=== PATIENT | female | born 1975 | race Two or more races ===

== ENCOUNTER 2019-04-11 14:20 | Emergency (ER) | payer OTHER ==
[~2019-04-11] VITALS: Ht 172.7 cm; Wt 64.5 kg
[2019-04-11] MEDS ORDERED: IV NORMAL SALINE 1,000ML 1,000 ML IV ONE (14:30)
[2019-04-11] MEDS ORDERED: KETOROLAC 15 MG/ML VIAL. IVP ONE (14:45)
[2019-04-11] MEDS ORDERED: FAMOTIDINE 20 MG/2 ML VIAL IVP ONE (14:45)
[2019-04-11] MEDS ORDERED: ONDANSETRON PF 4 MG/2 ML VIAL. IVP ONE (14:45)
[2019-04-11 14:58] LABS: BASO # 0.1 x10^3/uL (0.0-0.2); BASO % 0 % (0-3); EOS # 0.1 x10^3/uL (0.0-0.7); EOS % 0 % (0-3); HEMATOCRIT 40.5 % (36.0-47.0); HEMOGLOBIN 13.9 g/dL (12.0-15.5); LYMPH # 1.5 x10^3/uL (1.0-4.8); LYMPH % 8 % (24-48); MEAN CORPUSCULAR HEMOGLOBIN 31 pg (25-35); MEAN CORPUSCULAR HGB CONC 34 g/dL (31-37); MEAN CORPUSCULAR VOLUME 89 fL (79-100); MONO # 1.2 x10^3/uL (0.0-1.1); MONO % 6 % (0-9); NEUT # 17.1 x10^3uL (1.8-7.7); NEUT % 86 % (31-73); PLATELET COUNT 324 x10^3/uL (140-400); RED BLOOD COUNT 4.54 x10^6/uL (3.50-5.40); RED CELL DISTRIBUTION WIDTH 12.7 % (11.5-14.5); WHITE BLOOD COUNT 19.9 x10^3/uL (4.0-11.0)
[2019-04-11 15:07] LABS: CALCIUM 8.8 mg/dL (8.5-10.1); CREATININE 0.7 mg/dL (0.6-1.0); GFR 91.8; POTASSIUM 3.6 mmol/L (3.5-5.1)
--- NOTE | 2019-04-11 15:09 | PHYS DOC ---
Past History Past Medical History: Hypertension Past Surgical History: Hysterectomy Smoking: Non-smoker Alcohol Use: Rarely Drug Use: None Adult General Chief Complaint Chief Complaint: NAUSEA/VOMITING/DIARRHEA HPI HPI Patient is a 43 yo female presenting with nausea, vomiting, and diarrhea. Yesterday at lunch she ate at a restaurant and began feeling nauseous afterwards. She continued to feel nauseous last night, but was able to keep down water and some crackers. At around 1 pm today she had 2 episodes of nonbloody emesis and one episode of nonbloody watery diarrhea. She has not been able to drink fluids or eat much today. A friend that ate at the same restaurant with her yesterday also was sick with nausea and vomiting yesterday. She reports chills, bloating, and cramping abdominal pain. She denies fevers. Denies . Review of Systems Review of Systems Constitutional: Denies fever, reports chills Eyes: Denies redness or eye pain HENT: Denies nasal congestion or sore throat Respiratory: Denies cough or shortness of breath Cardiovascular: Denies chest pain or palpitations GI: Reports cramping abdominal pain, nausea, and vomiting : Denies dysuria or hematuria Musculoskeletal: Denies back pain or joint pain Integument: Denies rash or skin lesions Neurologic: Denies headache, focal weakness or sensory changes Complete systems were reviewed and found to be within normal limits, except as documented in this note. Family History Family History No pertinent family history. Current Medications Current Medications Current Medications Medications (Trade) Dose Ordered Sig/Jose Start Time Stop Time Status Last Admin Dose Admin Famotidine (Pepcid Vial) 20 mg 1X ONCE 04/11/19 14:45 04/11/19 14:46 DC 04/11/19 14:45 20 MG Ketorolac Tromethamine (Toradol 15mg Vial) 15 mg 1X ONCE 04/11/19 14:45 04/11/19 14:46 DC 04/11/19 14:45 15 MG Ondansetron HCl (Zofran) 4 mg 1X ONCE 04/11/19 14:45 04/11/19 14:46 DC 04/11/19 14:45 4 MG Sodium Chloride 1,000 ml @ 1,000 mls/hr 1X ONCE 04/11/19 14:30 04/11/19 15:29 04/11/19 14:30 1,000 MLS/HR Allergies Allergies Allergies Coded Allergies Type Severity Reaction Last Updated Verified No Known Drug Allergies 04/11/19 No Physical Exam Physical Exam Constitutional: Well developed, well nourished, no acute distress, non-toxic appearance HENT: Normocephalic, atraumatic, oropharynx dry Eyes: Conjunctiva normal, no discharge Neck: Normal range of motion, supple Cardiovascular: Heart rate normal, regular rhythm Lungs & Thorax: Bilateral breath sounds clear to auscultation, no wheezing Abdomen: Soft, no tenderness, no rebound or guarding, negative heel strike, negative psoas sign Skin: Warm, dry, no erythema, no rash Extremities: ROM intact, no edema Neurologic: Alert and oriented X 3, normal motor function, normal sensory function, no focal deficits noted Psychologic: Affect normal, judgment normal Current Patient Data Vital Signs Vital Signs Date Time Temp Pulse Resp B/P (MAP) Pulse Ox O2 Delivery O2 Flow Rate FiO2 04/11/19 14:27 98.3 90 16 115/81 (92) 96 Room Air EKG EKG [] Radiology/Procedures Radiology/Procedures [] Course & Med Decision Making Course & Med Decision Making Pertinent Labs reviewed. (See chart for details) Patient is a 43 yo female presenting with nausea, vomiting, and diarrhea with presumed viral gastroenteritis. She began experiencing nausea yesterday after she ate at a restaurant. Today she has had some vomiting, diarrhea, and cramping abdominal pain and has not been able to eat or drink. No signs of peritonitis on physical exam. Patient was given iVF, Ketorolac, Pepcid, and Zofran. Instructed to remain on clear liquid diet for now and add in other liquids and foods as tolerated. Patient prescribed Pepcid, Levsin, and Zofran to take as needed. Patient stable for discharge with outpatient follow-up with PCP. Discussed findings and plan with patient, who acknowledges understanding and agreement. Dragon Disclaimer Dragon Disclaimer This electronic medical record was generated, in whole or in part, using a voice recognition dictation system. Departure Departure: Impression: Primary Impression: Nausea vomiting and diarrhea Disposition: HOME, SELF-CARE Condition: STABLE Referrals: PCP,ARABELLA (PCP) PRADEEP THAKKAR MD Patient Instructions: Diarrhea, [id number], Diet for Diarrhea, Adult, Nausea and Vomiting, [id number] Scripts Ondansetron (ONDANSETRON ODT) 4 Mg Tab.rapdis 1 TAB PO PRN Q6-8HRS PRN for NAUSEA, #16 TAB Prov: ROSEMARIE SPARKS DO 04/11/19 Famotidine (PEPCID) 20 Mg Tablet 1 TAB PO BID for Gastritis, #20 TAB Prov: ROSEMARIE SPARKS DO 04/11/19 Hyoscyamine Sulfate (LEVSIN-SL) 0.125 Mg Tab.subl 0.125 MG SL Q4-6HRS PRN for PAIN, #14 TAB Prov: ROSEMARIE SPARKS DO 04/11/19 ROSEMARIE SPARKS DO Apr 11, 2019 15:09
[2019-04-11 15:14] LABS: MAGNESIUM 1.8 mg/dL (1.8-2.4); TOTAL BILIRUBIN 0.8 mg/dL (0.2-1.0)
[2019-04-11 15:36] LABS: BILIRUBIN,URINE NEG (NEG); CLARITY,URINE HAZY; COLOR,URINE YELLOW; GLUCOSE,URINE NEG (NEG)
[2019-04-11 15:37] LABS: BACTERIA,URINE MOD /HPF (0-FEW); NITRITE,URINE NEG (NEG); SQUAMOUS EPITHELIAL CELL,UR MANY /LPF; UROBILINOGEN,URINE 0.2 mg/dL (0.2 mg/dL)
[2019-04-11 15:50] LABS: % BANDS 7 % (0-9); % BASOS 1 % (0-3); % EOS 1 % (0-5); % LYMPHS 5 % (24-48); % MONOS 8 % (0-10); % SEGS 78 % (35-66)
[2019-04-11 15:53] LABS: PLT ESTIMATE ADEQUATE (ADEQUATE)
[2019-04-11 15:55] VITALS: BP 118/80
[2019-04-11] MEDS ORDERED: ONDA4TAB12 PO (16:12)
[2019-04-11] MEDS ORDERED: FAMO-63 PO (16:12)
[2019-04-11] MEDS ORDERED: HYOS0.1265 SL (16:12)
== END 2019-04-11 16:20 | disposition home or self-care (01) ==
LOC: ER 14:20
DX: R11.2 Nausea with vomiting, unspecified (principal); R19.7 Diarrhea, unspecified; I10 Essential (primary) hypertension; Z90.710 Acquired absence of both cervix and uterus
CPT/HCPCS: 36415; 80053; 81001; 83690; 83735; 85007; 85025; 87086; 96361; 96374; 96375; 99284; J1885; J2405; J3490; J7030